=== PATIENT | male | born 1980 | race Caucasian/White ===

== ENCOUNTER → 2019-05-20 08:43 | Outpatient (POV) | payer OTHER, SELFPAY | PROVIDERS: Visit Provider Dermatology | DX: Z00.00 Encounter for general adult medical examination without abnormal findings (principal) ==

== ENCOUNTER → 2024-04-01 12:08 | Outpatient (CLI) | payer BC, SELFPAY | PROVIDERS: PCP Family Medicine; Visit Provider Family Medicine | DX: R06.83 Snoring (principal); G47.10 Hypersomnia, unspecified | CPT/HCPCS: G0399 ==

== ENCOUNTER 2024-11-20 13:01 | Outpatient (CLI) | payer BC, SELFPAY ==
--- NOTE | 2024-11-20 13:05 | XR_ITS ---
FINAL REPORT CLINICAL HISTORY: Foot Pain COMPARISON: None FINDINGS: RIGHT FOOT: Three views show no evidence of acute displaced fracture or dislocation of the visualized bony architecture. The joint spaces appear normal. Minimal calcaneal spurring is present. IMPRESSION: Unremarkable exam. Reviewed, Interpreted and Dictated by Vivi Cho MD Transcribed by Ivonne Buckner Authenticated and [facility]
--- NOTE | 2024-11-20 13:05 | XR_ITS ---
FINAL REPORT CLINICAL HISTORY: broke foot 2 years ago, pain since then COMPARISON: None FINDINGS: LEFT FOOT: Three views show no evidence of acute displaced fracture or dislocation of the visualized bony architecture. The joint spaces appear normal. Pes planus deformity is noted. A minimal calcaneal spur is noted as well. IMPRESSION: No acute bony abnormality. Reviewed, Interpreted and Dictated by Vivi Cho MD Transcribed by Ivonne Buckner Authenticated and . [facility]
== END 2024-11-20 23:59 | disposition home or self-care (01) ==
LOC: RAD 13:03
PROVIDERS: PCP Family Medicine; Visit Provider Nurse Practitioner
DX: M79.671 Pain in right foot (principal); M79.672 Pain in left foot
CPT/HCPCS: 73630